=== PATIENT | male | born 1955 | race Caucasian/White ===

== ENCOUNTER 2021-10-29 11:01 | Outpatient (CLI) | payer OTHER, SELFPAY ==
--- NOTE | ~2021-10-29 | CT_ITS ---
EXAMINATION: CT lung screening DATE: 10/29/2021 12:08 INDICATION: Personal history of nicotine dependence, prior smoker with 30 pack year history TECHNIQUE: Computed tomography (CT) of the chest was performed without intravenous contrast. The dose -length product (DLP) was 103.84 mGy-cm. Automated exposure control and iterative reconstruction tech [email or web address] were employed. COMPARISON: 03/06/2018 FINDINGS: There is mild emphysema. There is a stable there is a stable 4 mm nodule of the left lower lobe on image 85. The lungs are free of acute opacities. There is no pleural effusion or pneumothorax . Calcified pulmonary nodules and calcified right hilar lymph nodes are consistent with old granuloma tous disease. 5 mm nodule in association with the left major fissure. Changes of coronary artery byp ass grafting are noted. The heart size is normal. There is mild thoracic spondylosis. IMPRESSION: 1. Lung-RADS category 2: Benign appearance or behavior. Continue annual screening with noncontrast lo w-dose chest CT in 12 months. Reviewed, dictated and finalized at location F. IMPRESSION: 1. Lung-RADS category 2: Benign appearance or behavior. Continue annual screeni ng with noncontrast low-dose chest CT in 12 months.
== END 2021-10-29 11:02 | disposition home or self-care (01) ==
LOC: ANHIMG 11:06
PROVIDERS: PCP Family Medicine; Visit Provider Family Medicine
DX: Z12.2 Encounter for screening for malignant neoplasm of respiratory organs (principal); Z87.891 Personal history of nicotine dependence
CPT/HCPCS: 71271

== ENCOUNTER 2022-10-30 10:56 | Outpatient (CLI) | payer MEDICARE, OTHER, SELFPAY ==
--- NOTE | ~2022-10-30 | CT_ITS ---
EXAMINATION: CT lung screening DATE: 10/30/2022 11:16 INDICATION: Personal history nicotine dependence, prior smoker with 30 pack year history TECHNIQUE: Computed tomography (CT) of the chest was performed without intravenous contrast. The dose -length product (DLP) was 117.65 mGy-cm. Automated exposure control and iterative reconstruction tech [employer] were employed. COMPARISON: 10/29/2021 FINDINGS: There is mild emphysema. Again noted is a stable 4 mm nodule of the left lower lobe. There is mild dependent atelectasis of the lungs. Calcified pulmonary nodules and calcified right hilar lym ph nodes are consistent with old granulomatous disease. Changes of coronary artery bypass grafting ar e noted. The heart size is normal. There are no pathologically enlarged thoracic lymph nodes. Fissura l lymph nodes are again noted. There is mild thoracic spondylosis. IMPRESSION: 1. Lung-RADS category 2: Benign appearance or behavior. Continue annual screening with noncontrast lo w-dose chest CT in 12 months. Reviewed, dictated and finalized at location B. IMPRESSION: 1. Lung-RADS category 2: Benign appearance or behavior. Continue annual screeni ng with noncontrast low-dose chest CT in 12 months.
== END 2022-10-30 10:57 | disposition home or self-care (01) ==
PROVIDERS: PCP Family Medicine; Visit Provider Physician Assistant
DX: Z12.2 Encounter for screening for malignant neoplasm of respiratory organs (principal); Z87.891 Personal history of nicotine dependence
CPT/HCPCS: 71271

== ENCOUNTER 2023-04-30 16:00 | Outpatient (CLI) | payer MEDICARE, OTHER, SELFPAY ==
--- NOTE | ~2023-04-30 | US_ITS ---
EXAMINATION: US carotid duplex BI DATE: 04/30/2023 17:50 INDICATION: Right carotid bruit TECHNIQUE: Grayscale, color Doppler, and pulsed Doppler images of the cervical carotid arteries were obtained. The degree of vessel stenosis is placed in one of the following categories: normal, <50%, 5 0-69%, >=70% but less than near-occlusion, near-occlusion, or total occlusion. Note that percent sten osis relative to normal distal artery lumen diameter is indirectly measured from velocity measurement s as described by Demetrio, et al. Radiology 2003; 229:340-346. Notes: Normal: Peak systolic velocity <125 centimeters/sec and no plaque <50%. Peak systolic velocity <125 ( EDV <40; ICA/CCA PSV ratio <2.0; used these factors only a tandem lesions or low cardiac output or co ntralateral disease) 50-69 %: PSV 125-230 (EDV 40-100; ratio 2-4) >= 70% but less than near occlusion: PSV greater than 230 (EDV > 100; ratio> 4.0) Near Occlusion: PSV that is variable; markedly narrowed lumen Occlusion: Absent flow on color/spectral Doppler and no lumen on giron scale. COMPARISON: 08/21/2017. FINDINGS: RIGHT: The right common carotid artery (CCA) peak systolic velocity (PSV) is 151 cm/s. The right internal ca rotid artery (ICA) PSV is 112 cm/s. The right ICA end-diastolic velocity (EDV) is 23 cm/s. The right ICA/CCA PSV ratio is 0.7. The external carotid artery (ECA) PSV is 157 cm/s. There is antegrade flow in the right vertebral artery. LEFT: The left CCA PSV is 146 cm/s. The left ICA PSV is 125 cm/s. The left ICA EDV is 32 cm/s. The left ICA /CCA PSV ratio is 0.9. The ECA PSV is 195 cm/s. There is antegrade flow in the left vertebral artery . IMPRESSION: 1. Less than 50% stenosis in the right internal carotid artery by sonographic criteria. 2. Less than 50% stenosis in the left internal carotid artery by sonographic criteria. Reviewed, dictated and finalized at location L. IMPRESSION: 1. Less than 50% stenosis in the right internal carotid artery by sonographic c lindsay. 2. Less than 50% stenosis in the left internal carotid artery by sonographic cr beverly.
== END 2023-04-30 16:01 | disposition home or self-care (01) ==
PROVIDERS: PCP Family Medicine; Visit Provider Internal Medicine Cardiovascular Disease
DX: I65.23 Occlusion and stenosis of bilateral carotid arteries (principal)
CPT/HCPCS: 93880

== ENCOUNTER 2023-10-31 00:37 | Day surgery (SDC) | payer MEDICARE, OTHER, SELFPAY ==
[2023-10-30 12:53] VITALS: BMI 26.6
[2023-10-31] VITALS (9 sets, daily range): BP systolic 122–154; BP diastolic 48–80; PULSE 40–49; RESP 12–18; TEMP 36.3; O2SAT 95–99; BMI 26.4
[2023-10-31 09:58] LABS: Basophils Absolute Auto 0.1 K/mm3 (0.0-0.1); Basophils Percent Auto 1.1 % (0.2-1.2); Eosinophils Absolute Auto 0.3 K/mm3 (0-0.3); Eosinophils Percent Auto 5.2 % (0-4.4); Hematocrit 43.6 % (42.0-52.0); Hemoglobin 14.9 g/dL (14.0-18.0); Immature Granulocyte Absolute 0.02 K/mm3 (0.00-0.031); Immature Granulocyte Percent A 0.3 % (0-0.5); Lymphocytes Absolute Auto 1.68 K/mm3 (0.9-3.2); Lymphocytes Percent Auto 25.8 % (18.3-44.2); Mean Corpuscular HGB Conc 34.2 g/dl (32-36); Mean Corpuscular Hemoglobin 32.3 pg (26-34); Mean Corpuscular Volume 94.6 fl (80-100); Mean Platelet Volume 9.2 fl (7.4-10.4); Monocytes Absolute Auto 0.5 K/mm3 (0.1-0.6); Neutrophils Absolute Auto 3.9 K/mm3 (1.3-6.7); Neutrophils Percent Auto 59.6 % (45.5-73.1); Platelet Count Result 213 k/mm3 (150-375); Red Blood Count 4.61 M/mm3 (4.6-6.20); Red Cell Distribution Width 12.1 % (11.5-14.5); White Blood Count 6.5 K/mm3 (4.5-10.0)
[2023-10-31 10:28] LABS: Anion Gap 3 mmol/L (4-12); Blood Urea Nitrogen 16 mg/dL (9-20); Calcium 9.3 mg/dL (8.4-10.2); Carbon Dioxide 27 mmol/L (22-30); Chloride 109 mmol/L (98-107); Estimated CRCL calculation 64 ml/min; Estimated Glomerular Filt Rate > 60; Glucose 112 mg/dL (65-110); Potassium 4.3 mmol/L (3.4-5.0); Sodium 139 mmol/L (137-145)
--- NOTE | 2023-10-31 12:20 | WPDHPUPDATE1 ---
History and Physical Update Update Date/Time: 10/31/23 12:20 History and Physical has been reviewed, including an updated exam of the patient. There are NO changes in the patient's condition. Risks, benefits, and alternatives have been discussed and questions answered. Patient agrees to proceed with procedure.
--- NOTE | 2023-10-31 12:21 | WPDMODSED ---
Moderate Sedation Note-Pt Data Patient Data Diagnosis: Coronary artery disease s/p CABG and PCI Present Complaint: Coronary artery disease s/p CABG and PCI Procedure to be performed/Plan: Coronary angiography, bypass graft angiography, left heart cath, +/- PCI Allergies Allergy/AdvReac Type Severity Reaction Status Date / Time No Known Allergies Allergy Verified 10/31/23 10:01 Home Medications Medication Instructions Recorded Confirmed Type aspirin 81 mg tablet,delayed 81 mg PO DAILY 08/04/20 10/31/23 History release (Reuben Low Dose Aspirin) carvedilol 3.125 mg tablet 3.125 mg PO Q12H 08/04/20 10/31/23 History icosapent ethyl 1 gram capsule 2 g PO BID 08/04/20 10/31/23 History (Vascepa) atorvastatin 40 mg tablet 40 mg PO DAILY #90 tabs 07/10/23 10/30/23 Rx lisinopril 20 mg tablet 20 mg PO DAILY 10/30/23 10/31/23 History qczlaqiq-wyc-OR 200 mcg-vit K 100 1 cap PO DAILY 10/30/23 10/30/23 History mcg-lycop 500 [id number] capsule (Daily Multivitamin) Current Medications: Active Medications Sodium Chloride (Normal Saline Iv) 500 mls @ 100 mls/hr IV CONT .Q5H MARGO Sodium Chloride (Normal Saline Iv) 1,000 mls @ 125 mls/hr IV CONT .Q8H ONE Stop: 10/31/23 20:18 Sedation/Anesthesia: No previous sedation/anesthesia problems (including family history). [facility] Family History Family History Father Hypertension Family history of coronary artery disease Mother Family history of malignant neoplasm of urinary bladder Other Family history of cardiovascular disease Family history of malignant neoplasm Social History Social History Years smoked: 45 Smoking status: Never smoker Tobacco type: cigarettes and cigars Second hand tobacco smoke exposure: No Smoking end date: 07/09/00 Alcohol intake: current Substance use: never Substance use type: does not use Living arrangements: with family Occupation/Education: retired Gender identity (if verbalized by the patient): Male Sexual Orientation (if Verbalized by the Patient): Straight or Heterosexual Mod Sed Physical Exam Physical Exam Pre Procedural Exam: Normal: Appearance, Lungs, Heart Rate, Heart Rhythm, Neuro Exam, Extremities and Skin Hours since solid foods: 12 Hours since liquid intake: 8 Mallampati Classification: class III Internal Medicine - PN: Obj Da Vital Signs Vital Signs: Vital Signs - 24 hr 10/31/23 10:13 Temperature 36.3 C L Pulse Rate 42 L Respiratory Rate 14 Blood Pressure 146/60 H Pulse Oximetry 99 Oxygen Delivery Room Air Meds/Results Medications: Active Medications Generic Name Dose Route Start Last Admin Trade Name Freq PRN Reason Stop Dose Admin Sodium Chloride 500 mls @ 100 mls/hr 10/31/23 08:30 Normal Saline Iv IV CONT .Q5H MARGO Sodium Chloride 1,000 mls @ 125 mls/hr 10/31/23 12:19 Normal Saline Iv IV CONT 10/31/23 20:18 .Q8H ONE Labs 10/31/23 09:49 10/31/23 10:08 Labs: Laboratory Results - last 24 hr 10/31/23 10/31/23 09:49 10:08 WBC 6.5 RBC 4.61 Hgb 14.9 Hct 43.6 MCV 94.6 MCH 32.3 MCHC 34.2 RDW 12.1 Plt Count 213 MPV 9.2 Immature Gran % (Auto) 0.3 Neut % (Auto) 59.6 Lymph % (Auto) 25.8 [place]ascock % (Auto) 8.0 Eos % (Auto) 5.2 H Baso % (Auto) 1.1 Lymph # (Auto) 1.68 [place]ock # (Auto) 0.5 Eos # (Auto) 0.3 Baso # (Auto) 0.1 Abs Immat Gran (auto) 0.02 Absolute Neuts (auto) 3.9 Absolute Nucleated RBC 0.000 Nucleated RBC % 0.0 Sodium 139 Potassium 4.3 Chloride 109 H Carbon Dioxide 27 Anion Gap 3 L BUN 16 Creatinine 1.00 Estim Creat Clear Calc 64 Estimated GFR > 60 Glucose 112 H Calcium 9.3 ASA Classification/Sedation ASA Classification/Sedation ASA Class: II Emergent: No Risks: Risks, benefits and alternatives explained and
--- NOTE | 2023-10-31 12:22 | WPDCARDPROC ---
Cardiac Cath Procedure Note Date of procedure:: 10/31/23 Performing physician:: CATHETERIZATION LABORATORY REPORT Procedure Date: 10/31/2023 Supply Manager: Zenon Anaya M.D., [facility]? Referring Physician: Chilango Leyva M.D. ? Anesthesia: Versed and Fentanyl were ordered and given in my presence at 11:39, procedure ended at 12:13. Supervision of nurse monitored moderate sedation with Versed and Fentanyl was provided for 33 minutes. Total of Versed 1mg and Fentanyl 50mcg were administered by the Guest Services Associate RN Sherry Weaver and Desi Nicholson. Pre-op Diagnosis: Coronary artery disease s/p CABG and PCI Post-op Diagnosis: 1. Severe [place] two vessel coronary artery disease 2. Patent MONET to LAD bypass graft 3. Patent radial artery graft to OM 4. Known occluded ESTEFANIA to RPDA bypass graft 5. Known atretic radial artery graft to Diagonal 6. Elevated left ventricular end-diastolic pressure of 27mmHg Procedure(s): 1. Moderate sedation 2. Ultrasound-guided access of the right common femoral artery 3. Coronary angiography 4. Bypass graft angiography 5. Left heart catheterization 6. Angioseal closure of the right common femoral artery Access Site: Right common femoral artery Brief History and Clinical Indications: Patient is a 67 year old male who underwent 4V CABG on 12/01/1998 with MONET to LAD, ESTEFANIA to RPDA, Right radial artery from MONET sequentially to the Diagonal and OM. In 2005, cardiac catheterization showed occluded ESTEFANIA bypass graft and the radial artery to Diagonal graft was atretic. He underwent PCI to the RCA and OM at that time. Patient is referred for [facility] for atypical chest pain. All risks, benefits and alternatives to left heart catheterization with or without percutaneous coronary intervention was discussed at length with the patient. Risk of complications including but not limited to bleeding, infection, arrhythmia, stroke, worsening kidney function, blood loss, groin hematoma, limb loss, emergency coronary artery bypass grafting, and even were discussed with the patient and all questions were answered. The patient understood and wished to proceed. Time out called, patient name, date of , medical record number, allergies, procedure performed, identify Supply Manager, patient and staff member concurred with accurate data, procedure carried on. Findings: LEFT HEART CATHETERIZATION FINDINGS: 1. Left main: The left main coronary artery is widely patent without any significant obstructive disease. 2. Left anterior descending: The LAD is [employer]ENT[employer]ER in the mid portion. 3. Left circumflex: The left circumflex artery is a small caliber vessel that has moderate disease in the proximal portion. The OM vessel is [employer]GI[employer]ER in its ostium. There are stents from the proximal portion of the OM to the distal portion of the OM, which are completely occluded. The distal OM is filled from the right radial artery graft. 4. Right coronary artery: The RCA is the dominant vessel. There is visible stent material from the ostial RCA to the mid RCA. The RCA has diffuse mild disease without any significant obstructive disease. 5. Bypass graft angiography: A. Patent MONET to LAD bypass graft B. Patent radial artery graft to OM C. Known occluded ESTEFANIA to RPDA bypass graft, which was not injected today. 5. Known atretic radial artery graft to Diagonal 6. Left ventricle: A. End-diastolic pressure 27 mmHg. B. LV gram deferred. C. No significant gradient across aortic valve on catheter pullback. Description of Procedure: Informed consent signed and placed in the chart. Patient transferred to laboratory tester room. Prepped and draped in usual sterile fashion. 2% lidocaine in right groin area. Micropuncture needle used to access right common femoral artery with Seldinger technique under fluoroscopic and ultrasound guidance. J wire advanced, micropuncture cannula placed. Right iliofemoral angiogram performed, access confirmed and micropuncture cannul
== END 2023-10-31 15:35 | disposition home or self-care (01) ==
PROVIDERS: PCP Family Medicine; Visit Provider Internal Medicine
PROC: 4A023N7 Measurement of Cardiac Sampling and Pressure, Left Heart, Percutaneous Approach (ICD-10-PCS; CPT 93459; principal; 2023-10-31 10:00)
DX: I25.10 Atherosclerotic heart disease of native coronary artery without angina pectoris (principal); I25.810 Atherosclerosis of coronary artery bypass graft(s) without angina pectoris; I10 Essential (primary) hypertension; I11.9 Hypertensive heart disease without heart failure; F32.A Depression, unspecified; K21.9 Gastro-esophageal reflux disease without esophagitis; G47.33 Obstructive sleep apnea (adult) (pediatric); E78.00 Pure hypercholesterolemia, unspecified; Z87.891 Personal history of nicotine dependence; I35.0 Nonrheumatic aortic (valve) stenosis; Z79.82 Long term (current) use of aspirin
CPT/HCPCS: 36415; 80048; 85025; 93459; C1760; C1887; C1894; G0269; J1644; J2250; J3010; J7040

== ENCOUNTER 2024-02-20 11:12 | Outpatient (CLI) | payer MEDICARE, OTHER, SELFPAY ==
--- NOTE | ~2024-02-20 | CT_ITS ---
EXAMINATION: CT lung screening DATE: 02/20/2024 11:28 INDICATION: Z87.891 - Personal history of nicotine dependence TECHNIQUE: Computed tomography (CT) of the chest was performed without intravenous contrast. Addition al 3D reconstructions utilizing coronal maximum intensity projection (MIP) were performed. Automated exposure control and iterative reconstruction technique were employed. The dose-length product was 11 3.52 mGy-cm. COMPARISON: 10/30/2022 FINDINGS: A few calcified nodules in the right lung along with calcified right hilar lymph nodes consistent wit h old granulomatous disease. No change in a few scattered bilateral small pulmonary nodules the large st measuring 4 mm in the left lower lobe. Scattered mild discoid atelectasis in the lingula, right mi ddle and bilateral lower lobes. No pneumonia, pulmonary edema or pleural effusion. Heart size is norm al. Atherosclerotic coronary artery calcifications and likely coronary artery stenting. There is also been prior median sternotomy with changes of coronary artery bypass grafting. Thoracic aorta is norm al in caliber. No pathologically enlarged thoracic lymphadenopathy. Visualized upper abdomen is unrem arkable. Mild to moderate thoracic and lower cervical spondylosis. IMPRESSION: 1. Lung-RADS category 2: Benign appearance or behavior. Continue annual screening with noncontrast lo w-dose chest CT in 12 months. Reviewed, dictated and finalized at location A. IMPRESSION: 1. Lung-RADS category 2: Benign appearance or behavior. Continue annual screeni ng with noncontrast low-dose chest CT in 12 months.
== END 2024-02-20 11:13 | disposition home or self-care (01) ==
LOC: ANHIMG 11:15
PROVIDERS: PCP Family Medicine; Visit Provider Family Medicine
DX: Z12.2 Encounter for screening for malignant neoplasm of respiratory organs (principal); Z87.891 Personal history of nicotine dependence
CPT/HCPCS: 71271